=== PATIENT | female | born 1935 | race Caucasian/White ===

== ENCOUNTER 2018-02-05 08:12 | Inpatient (IN) | payer MEDICARE ==
[~2018-02-05] VITALS: Ht 160 cm; Wt 80.9 kg
[~2018-02-05 08:12] MED LIST: AGGRENOX 25/2001 EA PO; AMOXIL500 MG PO; ASPIRIN CHEWABL81 MG PO; CEFTRIAXON2 GM/50 ML IV; CIPROFLOXACIN500 MG PO; COUMADIN2.5 M1 PO; COUMADIN3 M1 PO; COUMADIN4 M2 PO; Coumadin2 MG PO; DOXYCYCLINE100 MG PO; DUONEB 3 MG/3 ML3 M1 NEB; FLONASE ALLERG9.9 ML NAS; FLUTICASON0.05 MG/AC NAS; HUMALOG100 U/ML SC; JANUVIA100 MG PO; KLOR-CON M2020 ME1 PO; LANTUS SOL100 UNIT/1 SC; LANTUS100 U/ML SC; LASIX20 MG PO; LISINOPRIL40 MG PO; LOMOTIL 0.025 M1 TAB PO; LOPRESSOR50 M1 PO; LOSARTAN POTASS25 M1 PO; METOPROLOL SUCC25 M2 PO; METOPROLOL TART50 M1 PO; METOPROLOL50 MG PO; MOTRIN800 MG PO; NORVASC10 MG PO; NOVOLIN R100 U/ML SC; POTASSIUM CHLO20 ME4 PO; PRAVACHOL10 MG PO; PRAVACHOL20 MG PO; PROSOURCE PLUS887 ML PO; ROBAFEN100 MG/51 PO; SYNTHROID,LEV100 MCG PO; TRAMADOL HCL50 MG PO; TUSSIN COU15 MG/5 ML PO; TYLENOL325 M1 PO; TYLENOL325 M2 PO; VICODIN 5/500 505 MG PO; VITAMIN D2000 IU PO; VITAMIN D5000 I2 PO; VITAMIN D5000 IU PO
[2018-02-05 08:13] VITALS: BP 131/80
[2018-02-05 09:01] LABS: BILIRUBIN NEGATIVE (NEGATIVE); BLOOD 3+ (NEGATIVE); CLARITY CLOUDY (CLEAR); COLOR YELLOW (YELLOW); GLUCOSE 2+ (NEGATIVE); KETONE NEGATIVE (NEGATIVE); LEUKO ESTERASE NEGATIVE (NEGATIVE); NITRITE POSITIVE (NEGATIVE); SPECIFIC GRAVITY 1.025 (1.005-1.030); UROBILINOGEN 0.2 E.U./dl (0.2-1.0)
[2018-02-05 09:08] LABS: HEMATOCRIT 39.7 % (37.0-47.0); HEMOGLOBIN 13.1 g/dl (12.0-16.0); MEAN PLATELET VOLUME 9.8 fl (9.6-12.3); PLATELET COUNT AUTOMATED 206 10*3/uL (130-400); RED BLOOD COUNT 4.51 10*6/uL (4.10-5.10); RED CELL DISTRI WIDTH 13.5 % (0-14.5); WHITE BLOOD COUNT 10.3 10*3/uL (4.8-10.8)
[2018-02-05 09:15] LABS: BACTERIA 4+
[2018-02-05 09:17] LABS: RBC 41-50 rbc/hpf (0-2); WBC TNTC wbc/hpf (0-5)
[2018-02-05 09:24] LABS: ALKALINE PHOSPHATASE 63 U/L (45-117); BUN 18 mg/dl (7-24); CHLORIDE 102 mmol/L (98-107); CREATININE 0.83 mg/dL (0.55-1.02); POTASSIUM 4.5 mmol/L (3.5-5.1); SGOT/AST 24 IU/L (3-35); SGPT/ALT 18 U/L (12-78); SODIUM 134 mmol/L (136-145); TOTAL PROTEIN 7.7 gm/dL (6.4-8.2)
[2018-02-05 09:30] LABS: PLATELET SUFFICIENCY NORMAL (NORMAL); TOTAL CELLS COUNTED 100 #CELLS
[2018-02-05] MEDS ORDERED: COUMADIN2.5 M1 PO (12:46)
[2018-02-05] MEDS ORDERED: BISCOLAX10 M1 R (12:48)
[2018-02-05] MEDS ORDERED: MILK OF MA400 MG/51 PO (12:49)
[2018-02-05] MEDS ORDERED: FLEET MINERAL133 ML PO (12:49)
[2018-02-05 13:22] VITALS: BP 144/74
[2018-02-05 16:00] VITALS: BP 160/64
[2018-02-05 20:00] VITALS: BP 133/50
[2018-02-06] VITALS: BP 110/62; BP 99/38
[2018-02-06 06:58] LABS: BASO # 0.1 10*3/uL (0.0-0.1); BASO % 0.9 % (0.0-1.0); EOS # 0.1 10*3/uL (0.0-0.4); EOS % 2.2 % (1.0-4.0); HEMATOCRIT 37.7 % (37.0-47.0); HEMOGLOBIN 12.5 g/dl (12.0-16.0); LYMPH # 1.1 10*3/uL (1.3-4.4); MEAN CELL VOLUME 87.9 fl (81.0-99.0); MEAN CORPUSCULAR HGB 29.1 pg (27.0-31.0); MEAN CORPUSCULAR HGB CONC 33.2 g/dl (33.0-37.0); MONO # 0.6 10*3/uL (0.1-1.0); MONO % 9.9 % (3.0-9.0); NEUT # 4.5 10*3/uL (2.3-7.9); NEUT % 69.7 % (47.0-73.0); PLATELET COUNT AUTOMATED 189 10*3/uL (130-400); RED BLOOD COUNT 4.29 10*6/uL (4.10-5.10); RED CELL DISTRI WIDTH 13.6 % (0-14.5); WHITE BLOOD COUNT 6.5 10*3/uL (4.8-10.8)
[2018-02-06 07:09] LABS: BUN 13 mg/dl (7-24); CHLORIDE 106 mmol/L (98-107); CREATININE 0.64 mg/dL (0.55-1.02); PHOSPHOROUS 3.2 mg/dL (2.5-4.9); POTASSIUM 3.8 mmol/L (3.5-5.1); SODIUM 138 mmol/L (136-145)
[2018-02-06 07:24] LABS: INTERNATIONAL NORM RATIO 2.2 (2.0-3.5)
[2018-02-06 08:00] VITALS: BP 158/62
[2018-02-06 12:00] VITALS: BP 154/78
[2018-02-06 16:00] VITALS: BP 170/69
[2018-02-06 20:00] VITALS: BP 157/81
[2018-02-07] VITALS: BP 128/55
[2018-02-07 08:00] VITALS: BP 134/83
[2018-02-07 13:37] VITALS: BP 128/71
[2018-02-07 16:00] VITALS: BP 157/79
[2018-02-07 20:00] VITALS: BP 111/48
[2018-02-08] VITALS: BP 152/64
[2018-02-08 06:32] LABS: BASO # 0.1 10*3/uL (0.0-0.1); BASO % 0.8 % (0.0-1.0); EOS # 0.1 10*3/uL (0.0-0.4); EOS % 1.7 % (1.0-4.0); HEMOGLOBIN 12.7 g/dl (12.0-16.0); LYMPH # 1.2 10*3/uL (1.3-4.4); LYMPH % 15.9 % (27.0-41.0); MEAN CELL VOLUME 89.3 fl (81.0-99.0); MEAN CORPUSCULAR HGB 28.3 pg (27.0-31.0); MEAN CORPUSCULAR HGB CONC 31.8 g/dl (33.0-37.0); MONO # 0.7 10*3/uL (0.1-1.0); MONO % 8.8 % (3.0-9.0); NEUT # 5.4 10*3/uL (2.3-7.9); NEUT % 72.5 % (47.0-73.0); PLATELET COUNT AUTOMATED 198 10*3/uL (130-400); RED BLOOD COUNT 4.48 10*6/uL (4.10-5.10); RED CELL DISTRI WIDTH 13.7 % (0-14.5); WHITE BLOOD COUNT 7.5 10*3/uL (4.8-10.8)
[2018-02-08 06:42] LABS: BUN 18 mg/dl (7-24); CHLORIDE 103 mmol/L (98-107); CREATININE 0.66 mg/dL (0.55-1.02); POTASSIUM 4.3 mmol/L (3.5-5.1); SODIUM 137 mmol/L (136-145)
[2018-02-08 06:50] LABS: INTERNATIONAL NORM RATIO 2.4 (2.0-3.5)
[2018-02-08] MEDS ORDERED: CEFUROXIME250 MG PO (11:57)
== END 2018-02-08 13:57 | disposition home or self-care (01) | DRG 689 ==
LOC: ED 08:12 → 5E 11:05 → EDHOLD 11:05 → 5E 11:42
PROVIDERS: Emergency Medicine; Internal Medicine
DX: N39.0 Urinary tract infection, site not specified (principal); G93.41 Metabolic encephalopathy; E87.1 Hypo-osmolality and hyponatremia; E44.0 Moderate protein-calorie malnutrition; I50.30 Unspecified diastolic (congestive) heart failure; D68.59 Other primary thrombophilia; J84.9 Interstitial pulmonary disease, unspecified; I69.351 Hemiplegia and hemiparesis following cerebral infarction affecting right dominant side; I11.0 Hypertensive heart disease with heart failure; E03.9 Hypothyroidism, unspecified; E11.69 Type 2 diabetes mellitus with other specified complication; Z66 Do not resuscitate; B96.20 Unspecified Escherichia coli [E. coli] as the cause of diseases classified elsewhere; Z51.5 Encounter for palliative care; E66.9 Obesity, unspecified; I25.10 Atherosclerotic heart disease of native coronary artery without angina pectoris; E78.5 Hyperlipidemia, unspecified; E11.65 Type 2 diabetes mellitus with hyperglycemia; I48.91 Unspecified atrial fibrillation; Z79.4 Long term (current) use of insulin; Z68.31 Body mass index [BMI] 31.0-31.9, adult; Z88.8 Allergy status to other drugs, medicaments and biological substances; Z88.2 Allergy status to sulfonamides; Z87.440 Personal history of urinary (tract) infections; Z90.49 Acquired absence of other specified parts of digestive tract; Z82.3 Family history of stroke; Z95.5 Presence of coronary angioplasty implant and graft; Z83.3 Family history of diabetes mellitus; Z82.49 Family history of ischemic heart disease and other diseases of the circulatory system; Z79.899 Other long term (current) drug therapy; Z79.82 Long term (current) use of aspirin; Z79.01 Long term (current) use of anticoagulants

== ENCOUNTER 2018-09-12 16:58 | Inpatient (IN) | payer MEDICARE ==
[~2018-09-12] VITALS: Ht 152.4 cm; Wt 80.4 kg
--- NOTE | ~2018-09-12 | EKG ---
[place], [place] ELECTROCARDIOGRAM REPORT NAME: NATALI TIAN UNIT #: [id number] ROOM: 419 DOCTOR: JUSTIN DRAFT REPORT BIRTHDATE: [birth year] [facility] Test Date: 2018-09-12 Test Time: 17:24:17 Pat Name: NATALI TIAN Department: Room: 419 Gender: F Lightning Protection Installer: SS RESP : 1935 Requested By: SHILOH MILLER Order Number: [id number] Reading MD: Vick Chaparro MD Measurements Intervals [place] Rate: 93 P: IA: QRS: 26 QRSD: 107 T: 142 QT: 378 QTc: 471 Interpretive Statements Atrial fibrillation Incomplete left bundle branch block Probable left ventricular hypertrophy Minimal ST elevation, inferior leads Baseline wander in lead(s) I,II,aVR,aVL,aVF,V1,V3,V4,V5,V6 Compared to ECG 08/28/2018 17:51:35 Left bundle-branch block now present ST (T wave) deviation now present Electronically Signed On 09-14-2018 9:09:12 PDT by Vick Chaparro MD CM:EKGRPT:ELECTROCARDIOGRAM REPORT [id number] SHILOH ROJO DRAFT REPORT SHILOH MILLER DO
--- NOTE | ~2018-09-12 | CON ---
[place], [place] REPORT OF CONSULTATION NAME: NATALI TIAN UNIT #: [id number] ROOM: 419 DOCTOR: JJ RAMIREZ MD BIRTHDATE: [birth year] DOS: 09/13/2018 PSYCHIATRIC CONSULTATION CHIEF COMPLAINT: "Oh, good morning." HISTORY OF PRESENT ILLNESS: This is an 83-year-old white female known to me from her stay at the [facility]. The patient was admitted to the [facility] from [facility] in [place] due to significant alteration in mental status with verbal and physical aggressiveness, also the patient had been exit seeking and disrobing frequently. The patient was stabilizing and was ready for discharge shortly when she became unresponsive, necessitating an ICU admission for further evaluation and treatment. MENTAL STATUS: The patient is alert and oriented to self only. She is fairly pleasant and bright and offers no complaints. She is very confused and disoriented; however. There was no hypomania, misty or psychosis. She does process conversation exceptionally slow and short term memory remains very problematic. IMPRESSION: Impulse control disorder, not otherwise specified and Alzheimer's dementia. PLAN: I would continue her current psychotropic regimen as this seems to be her baseline. [facility] feel that they can adequately meet her needs and did feel that she needed to be skilled at least for a 30 day stay. I would discuss this with child welfare social worker and see if an appropriate placement can be made. Should you require further intervention, please feel free to contact me at any time. JJ RAMIREZ MD CM:CONSTR:REPORT OF CONSULTATION 0929 09/13/18 1843 interface
[2018-09-12 16:58] VITALS: BP 118/99
[~2018-09-12 16:58] MED LIST changes: +ARNUITY ELLIPT50 MCG INH; +ASPIRIN ADULT L81 M1 PO; +ATIVAN0.5 MG PO; +BISCOLAX10 M1 R; +CEFUROXIME250 MG PO; +COUMADIN1 M1 PO; +EXELON13.3 MG/21 T; +FLEET MINERAL133 ML PO; +LORAZEPAM0.5 MG PO; +MEMANTINE HCL10 MG PO; +MILK OF MA400 MG/51 PO; +MIRTAZAPINE15 M2 PO; +NEUDEXT PO; +RISPERIDONE M-0.5 MG BC
--- NOTE | 2018-09-12 16:58 | NUR ---
A 83yr old female, admitted to ICCU, under the services of SHILOH Mehta DO with a diagnosis of Altered mental status. Chief complaint is S/P Rapid Response on U, staring off, drooling, and hard to arouse. Patient arrived via [facility] chair from [facility]. Monitor applied. Initial assessment completed. Vital signs taken and recorded. SHILOH MEHTA DO accompanied pt from [facility] to the [facility]U. See assessment for past medical history, medications and allergies. Patient and/or family oriented to unit. [facility]. Clothing/patient valuable form completed. Patient has multiple ecchymotic areas. She has a Optifoam dressing to coccyx, removed and photos/measurements to be taken. IV started and incontinent brief applied. NATHALY BELL L
[2018-09-12 17:20] LABS: BASO % 0.3 % (0.0-1.0); EOS # 0.2 10*3/uL (0.0-0.4); EOS % 1.3 % (1.0-4.0); HEMATOCRIT 36.9 % (37.0-47.0); LYMPH # 1.4 10*3/uL (1.3-4.4); MEAN CELL VOLUME 89.6 fl (81.0-99.0); MEAN CORPUSCULAR HGB 29.1 pg (27.0-31.0); MEAN CORPUSCULAR HGB CONC 32.5 g/dl (33.0-37.0); MEAN PLATELET VOLUME 11.5 fl (9.6-12.3); MONO # 1.1 10*3/uL (0.1-1.0); MONO % 8.5 % (3.0-9.0); NEUT # 9.8 10*3/uL (2.3-7.9); PLATELET COUNT AUTOMATED 224 10*3/uL (130-400); RED BLOOD COUNT 4.12 10*6/uL (4.10-5.10); RED CELL DISTRI WIDTH 15.4 % (0-14.5); WHITE BLOOD COUNT 12.5 10*3/uL (4.8-10.8)
--- NOTE | 2018-09-12 17:49 | NUR ---
Attempted ABG x 2 with no success. Pt is mildly aggitated and moving arms. called and he said to wait for other blood tests to come back and we can re-evaluate. Nurse notified.
[2018-09-12 18:10] LABS: ALBUMIN 2.6 gm/dl (3.1-4.5); CREATININE 1.22 mg/dL (0.55-1.02); POTASSIUM 4.8 mmol/L (3.5-5.1); TOTAL PROTEIN 6.9 gm/dL (6.4-8.2)
[2018-09-12 18:13] LABS: TROPONIN I 0.025 ng/ml (<0.045)
--- NOTE | 2018-09-12 18:48 | NUR ---
Dr. Chacon was called and updated , lab values were reported. wound care recommendation pending evaulation by community cultural development officer. Family at bedside. pt. continued rambling " my hair, my hair, I got hairs in my arms now " .
[2018-09-12 20:00] VITALS: BP 109/54
[2018-09-13] VITALS (10 sets, daily range): BP systolic 82–131; BP diastolic 30–59
--- NOTE | 2018-09-13 03:01 | NUR ---
NATALI TIAN [id number] Please refer to the physician's history and physical for past medical history, comorbid conditions, and allergies. Diagnosis: ALTERED MENTAL STATUS Jony Score: 12,HIGH RISK WOUND DESCRIPTIONS: Wound Number: 1 Location of the wound: Coccyx Type of wound: stage 2 Thickness: Partial Size: 0.6cm x 0.4cm x 0.1cm Tunneling: none Undermining: none Sinus Tract: none Presence of Exudate: Serosanguineous Amount: Light Color: Red Odor: None Periwound Skin Appearance: Normal Wound edges: approximated Pain (associated with wound): none at time of assessment How does patient state this happened? pt unable to state how this happened Bilateral heels are mushy to touch. No open areas noted at time of assessment. Bilateral heels are pink and blanchable at time of assessment. Surface the patient is resting on: Position Pro SKIN PREVENTION RECOMMENDATION: 1. Pressure redistribution support surface as appropriate 2. Elevate heels 3. Remove boots/TEDS every shift and reapply 4. Head of bed 30 degrees as tolerated 5. Assess nutrition and hydration 6. Manage moisture 7. Avoid the use of containment devices while in bed 8. Use absorptive products on surfaces limit layers of linens on bed 9. Turn and reposition every 1-2 hours in bed and every 1 hour in chair as tolerated 10. Weight shifts every 15 minutes while up in chair 11. Offloading with pillows or device to keep heels elevated off bed 12. Monitor skin at least every shift 13. Inspect under medical devices twice a day WOUND TREATMENT RECOMMENDATIONS: Stage 2 guidelines: Cleanse coccyx with nss and apply sureprep around the wound therahoney to wound bed and cover with optifoam gentle. Wheelchair cushion when oob. Heel raiser pro boots to bilateral heels while in bed.
[2018-09-13 05:16] LABS: CREATININE 1.18 mg/dL (0.55-1.02); PHOSPHOROUS 3.6 mg/dL (2.5-4.9); POTASSIUM 4.9 mmol/L (3.5-5.1)
[2018-09-13 06:20] LABS: BASO % 0.3 % (0.0-1.0); EOS # 0.2 10*3/uL (0.0-0.4); EOS % 1.3 % (1.0-4.0); HEMATOCRIT 38.7 % (37.0-47.0); HEMOGLOBIN 12.3 g/dl (12.0-16.0); LYMPH # 1.2 10*3/uL (1.3-4.4); LYMPH % 9.9 % (27.0-41.0); MEAN CELL VOLUME 90.8 fl (81.0-99.0); MEAN CORPUSCULAR HGB 28.9 pg (27.0-31.0); MEAN CORPUSCULAR HGB CONC 31.8 g/dl (33.0-37.0); MEAN PLATELET VOLUME 11.3 fl (9.6-12.3); MONO % 8.8 % (3.0-9.0); NEUT # 9.4 10*3/uL (2.3-7.9); NEUT % 79.1 % (47.0-73.0); PLATELET COUNT AUTOMATED 219 10*3/uL (130-400); RED BLOOD COUNT 4.26 10*6/uL (4.10-5.10); RED CELL DISTRI WIDTH 15.6 % (0-14.5); WHITE BLOOD COUNT 11.9 10*3/uL (4.8-10.8)
[2018-09-13 06:45] LABS: INTERNATIONAL NORM RATIO 3.4 (2.0-3.5)
--- NOTE | 2018-09-13 07:46 | NUR ---
PATIENT NOT RECEIVING HUMALOG DUE TO POOR APPETITE.
[2018-09-13 08:42] LABS: BILIRUBIN NEGATIVE (NEGATIVE); BLOOD TRACE-INTACT (NEGATIVE); CLARITY CLEAR (CLEAR); COLOR YELLOW (YELLOW); GLUCOSE TRACE (NEGATIVE); KETONE NEGATIVE (NEGATIVE); LEUKO ESTERASE TRACE (NEGATIVE); NITRITE NEGATIVE (NEGATIVE); PH 5.5 (5.0-9.0)
[2018-09-13 08:54] LABS: RBC 0-2 rbc/hpf (0-2); WBC 0-2 wbc/hpf (0-5)
[2018-09-13 08:55] LABS: BACTERIA 1+; YEAST 2+
--- NOTE | 2018-09-13 09:00 | NUR ---
Designated Broker in to see patient. program services planner following for SNF referrals.
--- NOTE | 2018-09-13 09:14 | NUR ---
Dr. Shaffer notified of wound care recommendations.
--- NOTE | 2018-09-13 11:30 | NUR ---
LEOBARDO RN BUSINESS PARTNER, NOTIFIED OF TRANSFER ORDER TO [facility].
--- NOTE | 2018-09-13 11:36 | NUR ---
BLOOD GLUCOSE OF 187. PATIENT'S HUMALOG HELD DUE TO POOR APPETITE.
--- NOTE | 2018-09-13 11:52 | NUR ---
Nursing screen received. Chart review completed. Patient was being treated on [facility] and was max a for ADLs and transfers. Patient could benefit from OT evaluation when she returns to [facility] for d/c planning. Thank you. Alannah Fay OTR/L
--- NOTE | 2018-09-13 12:46 | NUR ---
LOW BP CALLED TO DR MILLER, CHANGES TO MEDS MADE.
--- NOTE | 2018-09-13 12:46 | NUR ---
REPORT CALLED TO KANDICE MARTI RN, ON 4E. PATIENT TO BE TRANSFERRED TO FLOOR MOMENTARILY.
--- NOTE | 2018-09-13 13:07 | NUR ---
RECEIVED RE[facility] TO ROOM 419.
--- NOTE | 2018-09-13 16:00 | NUR ---
HS MEDICATIONS TAKEN WITH EASE BY PT. POX 97% ON ROOM AIR. NO S/S OF DISTRESS NOTED, PT LETHARGIC BUT AROUSES EASILY. RESPIRATIONS UNLABORED ON ROOM AIR. FAMILY AT BEDSIDE FEEDING PT HER DINNER. WILL CONTINUE TO MONITOR. CALL LIGHT IN REACH.
--- NOTE | 2018-09-13 20:00 | NUR ---
RESTING IN BED WITH EYES CLOSED; AROUSES EASILY DURING ASSESSMENT. DAUGHTER MICHEAL PRESENT IN ROOM. IV FLUIDS INFUSING ORDERED INTO LEFT ANTECUBITAL WITHOUT DIFFICULTY; SITE ASYMPTOMATIC. NO DISTRESS NOTED; WILL CONTINUE TO MONITOR.
--- NOTE | 2018-09-13 22:00 | NUR ---
BLOOD SUGAR 97; NO COVERAGE REQUIRED.
--- NOTE | 2018-09-13 22:30 | NUR ---
TOOK PO MEDICATIONS IN APPLESAUCE WITHOUT DIFFICULTY. IV FLUIDS CONTINUE TO INFUSE ORDERED.
[2018-09-14] VITALS: BP 133/46
--- NOTE | 2018-09-14 04:50 | NUR ---
RESTING IN BED ON RIGHT SIDE WITH EYES CLOSED. IV FLUIDS INFUSING WITHOUT DIFFICULTY; SITE ASYMPTOMATIC. NO DISTRESS NOTED.
[2018-09-14 06:29] LABS: BASO # 0.1 10*3/uL (0.0-0.1); BASO % 0.5 % (0.0-1.0); EOS # 0.2 10*3/uL (0.0-0.4); HEMATOCRIT 33.1 % (37.0-47.0); HEMOGLOBIN 10.5 g/dl (12.0-16.0); LYMPH # 1.2 10*3/uL (1.3-4.4); LYMPH % 11.5 % (27.0-41.0); MEAN CELL VOLUME 90.7 fl (81.0-99.0); MEAN CORPUSCULAR HGB 28.8 pg (27.0-31.0); MEAN CORPUSCULAR HGB CONC 31.7 g/dl (33.0-37.0); MEAN PLATELET VOLUME 10.6 fl (9.6-12.3); MONO # 1.1 10*3/uL (0.1-1.0); MONO % 10.5 % (3.0-9.0); NEUT % 74.7 % (47.0-73.0); PLATELET COUNT AUTOMATED 207 10*3/uL (130-400); RED BLOOD COUNT 3.65 10*6/uL (4.10-5.10); RED CELL DISTRI WIDTH 15.7 % (0-14.5); WHITE BLOOD COUNT 10.7 10*3/uL (4.8-10.8)
--- NOTE | 2018-09-14 06:40 | NUR ---
IV started left antecubital with #22 protective cath after 2 attempts. Site prepped with Chloroprep. Sterile dressing applied. Patient tolerated procedure well. IV infusing at 60 cc/hr. SHANKAR SIMEON
--- NOTE | 2018-09-14 06:47 | NUR ---
BLOOD SUGAR 124; NO COVERAGE REQUIRED.
[2018-09-14 06:48] LABS: CHLORIDE 110 mmol/L (98-107); POTASSIUM 4.5 mmol/L (3.5-5.1); SODIUM 139 mmol/L (136-145)
[2018-09-14 06:52] LABS: CREATININE 0.98 mg/dL (0.55-1.02)
[2018-09-14 06:53] LABS: BUN 30 mg/dl (7-24)
[2018-09-14 06:54] LABS: INTERNATIONAL NORM RATIO 2.9 (2.0-3.5)
--- NOTE | 2018-09-14 07:46 | NUR ---
Awaiting PASRR determination. Referral has been made to [facility].
[2018-09-14 09:39] VITALS: BP 110/50
--- NOTE | 2018-09-14 10:44 | NUR ---
AM MEDICATIONS TAKEN WITH APPLESAUCE. PT APPEARS MORE ALERT TODAY THAN YESTERDAY. PT DAUGHTER SITTING IN ROOM WITH PT. RESPIRATIONS EASY AND UNLABORED ON ROOM AIR. NO OTHER COMPLAINTS VOICED BY FAMILY/PT AT THIS TIME. WILL CONTINUE TO MONITOR. CALL LIGHT IN REACH, ALL SAFETY MEASURES IN PLACE.
[2018-09-14 12:00] VITALS: BP 115/38
[2018-09-14 12:49] VITALS: BP 100/48
--- NOTE | 2018-09-14 13:35 | NUR ---
Phoned [facility] and was informed that pt is not accepted there as they are unable to meet her needs. Phoned [facility] and spoke to [facility] who stated that there is a skilled bed available. Faxed referral to [facility]. PASRR determination not yet received.
[2018-09-14 16:43] VITALS: BP 136/44
--- NOTE | 2018-09-14 18:45 | NUR ---
DRESSING CHANGED TO PT COCCYX/BUTTOCKS. PT TOLERATED WELL. PT BEDDING CHANGED AND PT FOUND TO HAVE PULLED LAC IV. WILL RESTART NEW IV AT THIS TIME.
[2018-09-14 20:00] VITALS: BP 128/50
[2018-09-15] VITALS: BP 126/56
--- NOTE | 2018-09-15 | NUR ---
RESTING IN BED WITH EYES CLOSED. RESPIRATIONS EASY & UNLABORED ON ROOM AIR. NO DISTRESS NOTED; CALL LIGHT WITHIN REACH.
--- NOTE | 2018-09-15 06:00 | NUR ---
BLOOD SUGAR 113.
--- NOTE | 2018-09-15 07:43 | NUR ---
PATIENT RESTING QUIETLY IN BED. NO DISTRESS NOTED. RESPIRATIONS EASY, REGULAR ON RA. POX 99% VIA RA. PT ALERT TO SELF AND CARE. DENIES ANY PAIN/DISCOMFORT AT THIS TIME. WILL CONTINUE TO MONITOR. VSS. BED ALARM MAINTAINED FOR SAFETY.
[2018-09-15 08:00] VITALS: BP 126/44; BP 177/69
[2018-09-15 12:00] VITALS: BP 112/58
[2018-09-15 16:24] VITALS: BP 103/18; BP 110/40; BP 122/40
--- NOTE | 2018-09-15 17:17 | NUR ---
PATIENT ASSISTED OUT OF BED ONTO BSC. MAX ASSIST. DAUGHTER AT BEDSIDE. WILL CONTINUE TO MONITOR.
[2018-09-15 20:00] VITALS: BP 120/49
--- NOTE | 2018-09-15 20:00 | NUR ---
AWAKE & SITTING UP IN BED WITH HOB ELEVATED. PT. MORE ALERT TODAY. SKIN PALE, WARM & DRY. HEP LOCK INTACT TO RIGHT ARM; WRAPPED WITH KERLIX DUE TO PT. PULLING OUT MULTIPLE IV'S. LUNGS CLEAR; NO COUGH NOTED. PT. VOICES NO C/O AT THIS TIME. NO DISTRESS NOTED. CALL LIGHT WITHIN REACH.
--- NOTE | 2018-09-15 22:00 | NUR ---
BLOOD SUGAR 170; COVERAGE GIVEN PER EMAR.
[2018-09-16] VITALS: BP 115/45
--- NOTE | 2018-09-16 06:00 | NUR ---
BLOOD SUGAR 100; NO COVERAGE REQUIRED.
[2018-09-16 06:12] LABS: BASO % 0.6 % (0.0-1.0); EOS # 0.2 10*3/uL (0.0-0.4); EOS % 2.6 % (1.0-4.0); HEMATOCRIT 30.3 % (37.0-47.0); HEMOGLOBIN 9.6 g/dl (12.0-16.0); LYMPH # 1.2 10*3/uL (1.3-4.4); LYMPH % 16.4 % (27.0-41.0); MEAN CELL VOLUME 91.5 fl (81.0-99.0); MEAN CORPUSCULAR HGB CONC 31.7 g/dl (33.0-37.0); MEAN PLATELET VOLUME 10.6 fl (9.6-12.3); MONO % 13.3 % (3.0-9.0); NEUT # 4.8 10*3/uL (2.3-7.9); PLATELET COUNT AUTOMATED 177 10*3/uL (130-400); RED BLOOD COUNT 3.31 10*6/uL (4.10-5.10); RED CELL DISTRI WIDTH 16.6 % (0-14.5); WHITE BLOOD COUNT 7.2 10*3/uL (4.8-10.8)
[2018-09-16 06:38] LABS: CHLORIDE 107 mmol/L (98-107); CREATININE 0.83 mg/dL (0.55-1.02); POTASSIUM 4.4 mmol/L (3.5-5.1); SODIUM 137 mmol/L (136-145)
[2018-09-16 06:45] LABS: BUN 20 mg/dl (7-24)
[2018-09-16 07:09] LABS: INTERNATIONAL NORM RATIO 1.4 (2.0-3.5)
[2018-09-16 08:00] VITALS: BP 141/46
--- NOTE | 2018-09-16 10:32 | NUR ---
PATIENT ACCEPTED MEDS IN APPLESAUCE WITHOUT ANY DIFFICULTY. DAUGHTER AT BEDSIDE. NO VOICED COMPLAINTS. VSS. WILL CONTINUE TO MONITOR.
[2018-09-16 12:00] VITALS: BP 135/46
[2018-09-16 16:00] VITALS: BP 135/49
--- NOTE | 2018-09-16 16:30 | NUR ---
PATIENT RESTING COMFORTABLY IN BED. DAUGHTER AT BEDSIDE, ASSISTING WITH MEAL. WILL CONTINUE TO MONITOR. CALL LIGHT WITHIN REACH. VSS
--- NOTE | 2018-09-16 19:21 | NUR ---
ASSISTED PT UP TO BSC AND BACK INTO BED WITH ASSIST X2. PATIENT IS A MAX ASSIST AND VERY WEAK AT THIS TIME. REPOSITIONED IN BED FOR COMFORT. PT REFUSES TEDs/TUBI BLOWING WEASAND. WILL MONITOR. BED LEFT LOCKED IN LOW POSITION, BED ALARM INTACT, CALL LIGHT IN REACH.
[2018-09-16 20:00] VITALS: BP 116/43
[2018-09-17] VITALS: BP 108/42
--- NOTE | 2018-09-17 02:15 | NUR ---
PATIENT ALSEEP IN BED. RESPIRATIONS EASY. NO S/S OF DISTRESS NOTED. WILL MONITOR. CALL LIGHT LEFT IN REACH. BED ALARM INTACT.
[2018-09-17 08:00] VITALS: BP 110/52
--- NOTE | 2018-09-17 09:32 | NUR ---
Patient has been accepted to [facility] nursing/rehab. 3 night stay is complete. Waiting on 2nd level clearance on PASS/RR.
--- NOTE | 2018-09-17 11:44 | NUR ---
Received clearance for 2nd level passrr. patient accepted to [facility] and 3 night stay complete. patient is ok to go when medically stable for discharge.
[2018-09-17 12:00] VITALS: BP 146/54
[2018-09-17] MEDS ORDERED: METOPROLOL SUCC25 M2 PO (13:05)
[2018-09-17] MEDS ORDERED: LORAZEPAM0.5 MG PO (13:05)
[2018-09-17] MEDS ORDERED: FLUCONAZOLE100 MG PO (13:05)
[2018-09-17] MEDS ORDERED: RISPERIDONE M-0.5 MG BC ×2 (13:05)
--- NOTE | 2018-09-17 14:02 | NUR ---
Patient is discharged to [facility], transportation scheduled for 4 PM with [address] [place], nursing steward/stewardess tourist class and family all notified.
--- NOTE | 2018-09-17 15:57 | NUR ---
[facility] Discharge instructions reviewed with patient/family. Patient receptive and verbalizes understanding. Follow-up care arranged. Written instructions given to patient/family. MANDA TOVAR
--- NOTE | 2018-09-17 16:01 | NUR ---
[facility] Discharge instructions reviewed with patient/family. Patient receptive and verbalizes understanding. Follow-up care arranged. Written instructions given to patient/family. MANDA TOVAR
== END 2018-09-17 16:01 | disposition other institution (70) | DRG 70 ==
LOC: ICCU 16:58 → 4E 09-13 13:02
PROVIDERS: Student in an Organized Health Care Education/Training Program; ADMIT Internal Medicine
DX: G93.41 Metabolic encephalopathy (principal); N17.0 Acute kidney failure with tubular necrosis; E43 Unspecified severe protein-calorie malnutrition; R65.11 Systemic inflammatory response syndrome (SIRS) of non-infectious origin with acute organ dysfunction; E87.2 Acidosis; I50.32 Chronic diastolic (congestive) heart failure; B37.49 Other urogenital candidiasis; R79.1 Abnormal coagulation profile; E80.6 Other disorders of bilirubin metabolism; E03.9 Hypothyroidism, unspecified; I25.10 Atherosclerotic heart disease of native coronary artery without angina pectoris; F63.9 Impulse disorder, unspecified; G30.9 Alzheimer's disease, unspecified; Z66 Do not resuscitate; Z51.5 Encounter for palliative care; F02.80 Dementia in other diseases classified elsewhere, unspecified severity, without behavioral disturbance, psychotic disturbance, mood disturbance, and anxiety; E78.5 Hyperlipidemia, unspecified; I48.0 Paroxysmal atrial fibrillation; I11.0 Hypertensive heart disease with heart failure; E11.69 Type 2 diabetes mellitus with other specified complication; E11.65 Type 2 diabetes mellitus with hyperglycemia; E11.39 Type 2 diabetes mellitus with other diabetic ophthalmic complication; H40.9 Unspecified glaucoma; H42 Glaucoma in diseases classified elsewhere; E83.41 Hypermagnesemia; E87.8 Other disorders of electrolyte and fluid balance, not elsewhere classified; E66.9 Obesity, unspecified; Z86.73 Personal history of transient ischemic attack (TIA), and cerebral infarction without residual deficits; Z90.49 Acquired absence of other specified parts of digestive tract; Z95.5 Presence of coronary angioplasty implant and graft; Z82.3 Family history of stroke; Z83.3 Family history of diabetes mellitus; Z82.49 Family history of ischemic heart disease and other diseases of the circulatory system; Z88.2 Allergy status to sulfonamides; Z88.8 Allergy status to other drugs, medicaments and biological substances; Z79.82 Long term (current) use of aspirin; Z79.899 Other long term (current) drug therapy; Z79.890 Hormone replacement therapy; Z68.32 Body mass index [BMI] 32.0-32.9, adult

== ENCOUNTER 2018-12-23 17:55 | Inpatient (IN) | payer OTHER, MEDICARE ==
[~2018-12-23] VITALS: Ht 165.1 cm; Wt 69.9 kg
[2018-12-23] VITALS (8 sets, daily range): BP systolic 108–229; BP diastolic 39–115
[~2018-12-23 17:55] MED LIST changes: +FLUCONAZOLE100 MG PO
--- NOTE | 2018-12-23 19:30 | NUR ---
HOSPICE NURSE CURRENTLY AT BEDSIDE. PATIENT FAMILY AT THE BEDSIDE WELL. SUCTION PROVIDED TO PATIENT AT THIS TIME, THICK BLOOD TINGED SECRETIONS NOTED IN SUCTION CANISTER AND TUBING. PATIENT CURRENTLY HAS SNORING RESPIRATIONS. 1931 - MEDICATION ADMINISTERED - SEE EMAR. PATIENTS FAMILY AT THE BEDSIDE SPEAKING TO PATIENT.
--- NOTE | 2018-12-23 21:10 | NUR ---
SPOKE WITH THE FAMILY AT THIS TIME REGARDING THE BED SITUATION. EXPLAINED TO FAMILY AT THIS TIME THAT WE MAY HAVE A BED AROUND 11PM BUT IF NOT THEN IT WILL POSSIBLY BE AROUND 3-4AM.
--- NOTE | 2018-12-23 21:26 | NUR ---
MEDICATION ADMINISTERED - SEE EMAR. PATIENT STILL REMAINS UNRESPONSIVE AT THIS TIME. PATIENT RESTING IN BED WITH FAMILY AT THE BEDSIDE. RN WILL CONTINUE TO MONITOR.
--- NOTE | 2018-12-23 21:45 | NUR ---
Time: 2144 A 83 year old F admitted to under services of VALERIE TAYLOR DO. Pt. arrived via stretcher from ER. Chief complaint: FALL AT RETIREMENT. COMMUNITY HOSPICE RECOMENDATIONS IN PLACE. JOSIE BAUTISTA A
--- NOTE | 2018-12-23 22:20 | NUR ---
Time: 2219 A 83 year old F admitted to under services of VALERIE TAYLOR DO. Pt. arrived via stretcher from ER. Chief complaint: FALL FROM SKILLED NURSING. COMMUNITY INSURANCE RISK ANALYST/MERLIN PRESENT ON ADMISSION. JOSIE BAUTISTA
--- NOTE | 2018-12-23 22:30 | NUR ---
SUCTIONS PROVIDED TO PATIENT AT THIS TIME, THICK BROWN COLORED SECRETIONS NOTED IN SUCTION CANISTER AND TUNING, PATIENT CURRENTLY HAS NONLABORED RESPIRATIONS.
--- NOTE | 2018-12-23 22:44 | NUR ---
PRN MORPHINE, ZOFRAN, AND ATIVAN GIVEN AT THIS TIME FOR S/S OF DISTRESS AND EMEIS NOTED WHILE ADMITTING PATIENT. CALL LIGHT IS WITHIN REACH, WILL CONTINUE TO MONITOR.
--- NOTE | 2018-12-23 23:20 | NUR ---
PRN ATIVAN AND MORPHINE GIVEN AT THIS TIME FOR S/S OF DISTRESS WILL MONITOR, CALL LIGHT IS WITHIN REACH.
--- NOTE | 2018-12-24 01:05 | NUR ---
PRN MORPHINE AND ZOFRAN GIVEN AT THIS TIME FOR S/S OF DISTRESS. CALL LIGHT IS WITHIN REACH AND FAMILY IS AT BEDSIDE. WILL MONITOR EFFECT.
--- NOTE | 2018-12-24 02:32 | NUR ---
PRN ATIVAN AND MORPHINE GIVEN FOR AGITATION AND RESPIRATORY DISTRESS. CALL LIGHT IS WITHIN REACH, FAMILY IS AT BEDSIDE WILL MONITOR EFFECT.
--- NOTE | 2018-12-24 04:05 | NUR ---
PRN ATROPINE GIVEN AT THIS TIME FOR MOIST RESPIRATIONS, FAMILY IS AT BEDISDE, CALL LIGHT IS WITHIN REACH. WILL MONITOR EFFECT.
--- NOTE | 2018-12-24 04:10 | NUR ---
PATIENT SUCTIONED AT THIS TIME FOR INCREASED RESPIRATORY EFFORT/MOIST RESPIRATIONS. THICK BROWN COLORED SECRETIONS NOTED IN SUCTION TUBING. PATIENT HAS SNORING, LABORED RESPIRATIONS.
--- NOTE | 2018-12-24 04:21 | NUR ---
PRN MORPHINE GIVEN AT THIS TIME FOR RESPIRATORY DISTRESS, FAMILY IS AT BEDSIDE AND CALL LIGHT IS WITHIN REACH. WILL MONITOR EFFECT.
--- NOTE | 2018-12-24 04:49 | NUR ---
NOTIFIED CHRISTOPHER SEGUNDO OF THE NEED TO SPEAK TO THE BUSINESS SUPPORT SPECIALIST'S RRTS STONECUTTER ASSISTANT.
--- NOTE | 2018-12-24 04:57 | NUR ---
RECEIVED CALL FROM LETICIA WITH THE DESIGN LEADER'S OFFICE, INFORMED OF SITUATION. ALL INFORMATION REQUESTED WAS PROVIDED. STATES THIS WILL BE A DESIGN LEADER'S CASE THAT WILL BE INVESTIGATED. AUTO SPECIALTY SERVICES MANAGER REQUESTING SCANS, LABS, DOCUMENTION FOR LAST 24 HOURS TO REMAIN WITH BODY. STAFF MADE AWARE OF ALL REQUEST.
--- NOTE | 2018-12-24 05:19 | NUR ---
PATIENT AT 0437 WITH FAMILY AT BEDSIDE. SHIFT DIRECTOR JOSE ANGEL MARAVILLA NOTIFED AT 0444, AND NOTIFIED THE CORONOR. DR. SHAY YEBOAH NOTIFIED AT 0457, ONE CALL NOTIFIED AT 0508, REFERENCE #: [id number] AND THEY WOULD LIKE TO FOLLOW THE CASE FOR POSSIBLE TISSUE DONATION. WHEN FAMILY LEFT POSTMORTERM CARE PROVIDED TO PATIENT AND IV LEFT IN PLACE.
--- NOTE | 2018-12-24 05:20 | NUR ---
PATIENT OFF FLOOR TO [facility] VIA SECURITY, IDENTITY BAND ATTACHED AND LIFE BANK PAPER WITH.
== END 2018-12-24 04:37 | disposition expired | DRG 66 ==
LOC: ED 17:55 → EDHOLD 20:40 → 4E 22:21
PROVIDERS: ADMIT Emergency Medicine
DX: I62.9 Nontraumatic intracranial hemorrhage, unspecified (principal); E11.9 Type 2 diabetes mellitus without complications; I10 Essential (primary) hypertension; I25.10 Atherosclerotic heart disease of native coronary artery without angina pectoris; I48.91 Unspecified atrial fibrillation; I50.9 Heart failure, unspecified; I11.0 Hypertensive heart disease with heart failure; Z66 Do not resuscitate; Z51.5 Encounter for palliative care; Z88.2 Allergy status to sulfonamides; Z88.8 Allergy status to other drugs, medicaments and biological substances; I25.2 Old myocardial infarction; Z95.5 Presence of coronary angioplasty implant and graft; Z83.3 Family history of diabetes mellitus; Z82.49 Family history of ischemic heart disease and other diseases of the circulatory system; Z82.3 Family history of stroke